=== PATIENT | female | born 2000 | race Caucasian/White ===

== ENCOUNTER 2021-01-26 21:41 | Emergency (ER) | payer MEDICAID, OTHER ==
[2021-01-26] MEDS ORDERED: Ketorolac 15 MG/ML SDV IM ONE (22:08)
--- NOTE | 2021-01-26 23:32 | CR ---
Indication: Pain after fall Technique: Three views Comparison: None Findings: Bones: Alignment is normal. No fractures or bone lesions. Joint spaces: Unremarkable. Soft tissues: Unremarkable. Dictated by Carlo Frey MD @ Jan 26 2021 11:29PM Signed by Dr. Carlo Frey @ Jan 26 2021 11:31PM
--- NOTE | 2021-01-26 23:42 | EDM.PDOC ---
ED HPI GENERAL MEDICAL PROBLEM - General Chief Complaint: Lower Extremity Injury/Pain Stated Complaint: INJURED TAILBONE Time Seen by Provider: 01/26/21 22:05 - History of Present Illness INITIAL COMMENTS - FREE TEXT/NARRATIVE: CHIEF COMPLAINT(S): Tailbone pain HISTORY OF PRESENT ILLNESS: This is a 20-year-old woman without any significant past medical history who comes to the emergency department with a chief complaint of tailbone pain. The patient states that she works for [employer] she was trying to [place]. She states that she slipped down to to force steps onto her bottom. She states that this happened approximately 2 hours ago. She states that since that time she has been experiencing pain rated 8-9 out of 10 which she describes as sharp and constant. She states that it is hard to sit down on it because it hurts. She denies any bowel incontinence or urinary incontinence. She denies any numbness or tingling of her lower extremities. She states that she is able to ambulate. She denies any abdominal pain, nausea or vomiting. She denies any head injury or loss of consciousness. She denies any chest pain or shortness of breath. She states that she has not yet taken any pain medication. REVIEW OF SYSTEMS: Constitutional: Denies fever, chills. Eyes: Denies eye pain Ears, Nose, Mouth, & Throat: Denies earache Cardiovascular: Denies chest pain Respiratory: Denies shortness of breath Gastrointestinal: Denies abdominal pain, nausea, vomiting, diarrhea, hematochezia, bowel incontinence Genitourinary: Denies hematuria urinary incontinence Skin:Denies a rash MSK: Positive for buttock pain Neurological: Denies blurred vision, numbness, tingling, weakness Psychiatric: Denies depression PAST MEDICAL HISTORY: As per history of present illness and as reviewed below otherwise noncontributory. SURGICAL HISTORY: As per history of present illness and as reviewed below otherwise noncontributory. LMP: December 19, 2020, her periods are not regular SOCIAL HISTORY: As per history of present illness and as reviewed below otherwise noncontributory. FAMILY HISTORY: As per history of present illness and as reviewed below otherwise noncontributory. EXAMINATION OF ORGAN SYSTEMS/BODY AREAS: Constitutional: Blood pressure is 123/64, heart rate 79, respiratory rate 16 with an oxygen saturation of 98% on room air. Temperature 36.6 General: Young woman who does not appear to be in acute distress. Psychiatric: Appropriate mood and affect. Eyes: No scleral icterus or conjunctival erythema ENMT: Moist mucous membranes. No pharyngeal erythema Cardiovascular: Regular, rate, and rhythm. No gallops, murmurs, or rubs. Bilateral upper extremity pulses symmetric and intact. No peripheral edema. No JVD. Respiratory: Lungs clear to auscultation bilaterally. No wheezes, rales, or rhonchi. Gastrointestinal: Soft, non-tender, non-distended. Normoactive bowel sounds Genitourinary: No suprapubic tenderness Musculoskeletal: Normal range of motion. Patient is ambulating around the room. With RN eligibility services representative in presence there is tenderness to palpation along the sacral/coccyx area. There is no deformity or bruising. No midline cervical, thoracic, or lumbar tenderness. No paraspinal muscle tenderness. Skin: No lesions or abrasions. Neurological: Alert, GCS 15 strength and sensation grossly intact in upper and lower extremities bilaterally. MEDICAL DECISION MAKING AND COURSE IN THE ED WITH INTERPRETATION/REVIEW OF DIAGNOSTIC STUDIES: This is a 20-year-old 9 without any significant past medical history who comes to the emergency department with acute buttock pain after a fall which is located around the coccyx. At this time will obtain a hCG qualitative urine and a sacrum/coccyx x-ray to evaluate for any fracture. We will provide the patient with Toradol for pain relief. There are no red flag symptoms therefore I do not believe any other labs or imaging are indicated. Laboratory: hCG is negative The radiological images were viewed by myself along with reading the report from the radiologist. Sacrum coccyx x-ray does not reveal any fracture or abnormality. After imaging I did discuss with patient that she would be stable for discharge. I did discuss the results with the patient. I discussed that she should continue to use Tylenol and Motrin and use ice to the affected area 20 minutes 4 times a day. She is to return to the emergency department for any new or worsening symptoms such as bowel incontinence, urinary incontinence, weakness or numbness of her lower extremities. She was amenable discharge at this time and had no further questions. DISPOSITION: The patient was discharged home in stable condition. The patient will follow up with primary care physician within 1 week CONDITION: Fair PROCEDURES: None FINAL IMPRESSION(S)/DIAGNOSES: 1. Acute mechanical fall 2. Acute sacral/coccyx pain Star Francis M.D. tailbone Pain Score (Numeric/FACES): 8 - Related Data Allergies Allergy/AdvReac Type Severity Reaction Status Date / Time No Known Allergies Allergy Verified 01/26/21 22:10 Home Meds: Home Meds Acetaminophen [Tylenol Extra Strength] 1,000 mg PO Q6HR #56 tablet 01/26/21 [Rx] Amphetamine/Dextroamphetamine [Adderall] 01/26/21 [History] Ibuprofen 600 mg PO Q6HR #28 tablet 01/26/21 [Rx] lamoTRIgine [Lamictal] 01/26/21 [History] Past Medical History - Past Health History Medical/Surgical History: Denies Medical/Surgical History Social & Family History - Tobacco Use Tobacco Use Status *Q: Never Tobacco User - Recreational Drug Use Recreational Drug Use: No Review of Systems - Review of Systems Review Of Systems: See Below ED EXAM, GENERAL - Physical Exam Exam: See Below Course - Vital Signs Last Recorded V/S: Last Vital Signs Temp 37.0 C 01/27/21 00:05 Pulse 85 01/27/21 00:05 Resp 16 01/27/21 00:05 BP 104/70 01/27/21 00:05 Pulse Ox 97 01/27/21 00:05 - Orders/Labs/Meds Labs: Laboratory Tests 01/26/21 Range/Units 22:18 Urine HCG, Qual NEGATIVE (NEGATIVE) Meds: Medications Discontinued Medications Generic Name Dose Route Start Last Admin Trade Name Freq PRN Reason Stop Dose Admin Ketorolac Tromethamine 15 mg 01/26/21 22:08 01/26/21 22:36 Ketorolac 15 Mg/Ml Sdv IM 01/26/21 22:09 15 mg ONETIME ONE Administration Departure - Departure Time of Disposition: 23:41 Disposition: Home, Self-Care 01 Condition: Fair Clinical Impression: Sacral pain - Discharge Information *PRESCRIPTION DRUG MONITORING PROGRAM REVIEWED*: No *COPY OF PRESCRIPTION DRUG MONITORING REPORT IN PATIENT LESVIA: No Prescriptions: Ibuprofen 600 mg PO Q6HR #28 tablet Acetaminophen [Tylenol Extra Strength] 1,000 mg PO Q6HR #56 tablet Instructions: Tailbone Injury Referrals: PCP,Not In Area [Primary Care Provider] - Forms: ED Department Discharge Additional Instructions: You evaluate today on an emergent basis. At this time the imaging did not reveal any fracture. At this time you could have a bone bruise or soft tissue injury from the fall. I do recommend the use of Tylenol and Motrin scheduled over the next 48 hours and then use as needed after that. Please use ice to the affected area 20 minutes 4 times a day. If you have any weakness of your lower extremity, urinate on yourself, or poop on yourself please return to the emergency department. Please follow-up with your primary care physician for further evaluation and monitoring within 3 to 5 days. Please use: Tylenol 500-1000mg every 6 hours (DO NOT TAKE MORE THAN 4000mg in 1 day) Ibuprofen 400mg every 6 hours (Take with food as it can cause ulcers, GI upset) Example schedule: 8:00 AM (Tylenol 500-1000mg) 11:00 AM (Ibuprofen 400mg) 2:00 PM (Tylenol 500-1000mg) 5:00 PM (Ibuprofen 400mg) In addition to Tylenol and Motrin you may use over the counter creams such as Voltaren Cream or Lidocaine Cream (Lidoderm) as needed 4 times a day for symptomatic relief. Ice the area 20 minutes 4 times per day [facility] [address] [place] [address] [place] [address] The patient is informed of any results of their evaluation and diagnostic workup and all questions are answered. They are given discharge instructions and return precautions. The patient is stable for discharge. The patient states they understand and agree with the plan and that they will return if their symptoms get worse or if they have any new concerns. The following information is given to patients seen in the emergency department who are being discharged to home. This information is to outline your options for follow-up care. We provide all patients seen in our emergency department with a follow-up referral. The need for follow-up, as well as the timing and circumstances, are variable de pending upon the specifics of your emergency department visit. If you don't have a primary care physician on staff, we will provide you with a referral. We always advise you to contact your personal physician following an emergency department visit to inform them of the circumstance of the visit and for follow-up with them and/or the need for any referrals to a consulting specialist. The emergency department will also refer you to a specialist when appropriate. This referral assures that you have the opportunity for follow-up care with a specialist. All of these measure are taken in an effort to provide you with optimal care, which includes your follow-up. Under all circumstances we always encourage you to contact your private physician who remains a resource for coordinating your care. When calling for follow-up care, please make the office aware that this follow-up is from your recent emergency room visit. If for any reason you are refused follow-up, please contact the [facility] Emergency Department at and asked to speak to the emergency department charge nurse. Sepsis Event Note (ED) - Evaluation Sepsis Screening Result: No Definite Risk - Focused Exam Vital Signs: Vital Signs Temp Pulse Resp BP Pulse Ox 01/27/21 00:05 37.0 C 85 16 104/70 97 01/26/21 22:08 36.6 C 79 16 123/64 98
== END 2021-01-27 00:08 | disposition home or self-care (01) ==
LOC: MW.ED 21:41
DX: S39.92XA Unspecified injury of lower back, initial encounter (principal); Z79.899 Other long term (current) drug therapy; W10.9XXA Fall (on) (from) unspecified stairs and steps, initial encounter
CPT/HCPCS: 72220; 81025; 96372; 99283; J1885

== ENCOUNTER 2021-04-20 23:40 | Emergency (ER) | payer MEDICAID ==
--- NOTE | 2021-04-21 01:08 | EDM.PDOC ---
ED HPI GENERAL MEDICAL PROBLEM - General Chief Complaint: Skin Complaint Stated Complaint: RASH UNDER EYES Time Seen by Provider: 04/21/21 00:45 - History of Present Illness INITIAL COMMENTS - FREE TEXT/NARRATIVE: History of present illness: [] Patient has erythematous patches under the eyes for 2 weeks. It is pruritic. She has new make-up. She has new hair dye in hair materials. She moved here from [place]. She doesn't have any local pharmacy but she will be living here. She has no trouble breathing. She sure she is not . Review of systems: As per history of present illness and below otherwise all systems reviewed and negative. Past medical history: As per history of present illness and as reviewed below otherwise noncontributory. Surgical history: As per history of present illness and as reviewed below otherwise noncontributory. Social history: No reported history of drug or alcohol abuse. Family history: As per history of present illness and as reviewed below otherwise noncontributory. Physical exam: Constitutional - well developed, well-nourished and in no acute distress HEENT - normocephalic, no evidence of trauma - external nose and mouth normal - no mass in neck and no JVD - mucosae moist EYES -blanching erythema of the lower lids in the face just below the lids. Full EOM, PERRL, no icterus - no evidence of inflammation, injection, or drainage Respiratory - no respiratory distress, equal bilateral expansion, lungs clear to auscultation and no abnormal lung sounds Cardiovascular - Regular Rhythm with S1 and S2 appreciated and no murmur, gallop or rub. GI - abdomen soft without distension or organomegaly -not tender- no guard or rebound Musculoskeletal no gross deformity of long bones or joints - no tenderness, swelling or edema Neurologic - Alert and oriented times four - CN II-XII grossly intact - motor sensory and coordination symmetrically normal Psychiatric - appropriate mood and affect with normal thought content Hematologic - No petechiae or purpura - mucosa appropriate color and sclera not pale Integument - no rash or evidence of trauma - normal turgor Diagnostics: [] Therapeutics: [] Impression: [] Plan: [] Definitive disposition and diagnosis as appropriate pending reevaluation and review of above. - Related Data Allergies Allergy/AdvReac Type Severity Reaction Status Date / Time No Known Allergies Allergy Verified 04/21/21 00:36 Home Meds: Home Meds Acetaminophen [Tylenol Extra Strength] 1,000 mg PO Q6HR #56 tablet 01/26/21 [Rx] Ibuprofen 600 mg PO Q6HR #28 tablet 01/26/21 [Rx] lamoTRIgine [Lamictal] 25 mg PO DAILY 01/26/21 [History] methylPREDNISolone [Medrol Dose Pack] 4 mg PO DAILY #21 tab 04/21/21 [Rx] Past Medical History - Past Health History Medical/Surgical History: Denies Medical/Surgical History Social & Family History - Tobacco Use Tobacco Use Status *Q: Never Tobacco User Second Hand Smoke Exposure: No - Recreational Drug Use Recreational Drug Use: No ED ROS GENERAL - Review of Systems Review Of Systems: Comprehensive ROS is negative, except as noted in HPI. ED EXAM, SKIN/RASH Exam: See Below Text/Narrative:: My physical exam is in the HPI Course - Vital Signs Last Recorded V/S: Last Vital Signs Temp 36.2 C 04/21/21 00:34 Pulse 77 04/21/21 00:34 Resp 14 04/21/21 00:34 BP 113/68 04/21/21 00:34 Pulse Ox 98 04/21/21 00:34 Departure - Departure Time of Disposition: 01:08 Disposition: Home, Self-Care 01 Condition: Good Clinical Impression: Atopic dermatitis - Discharge Information Prescriptions: methylPREDNISolone [Medrol Dose Pack] 4 mg PO DAILY #21 tab Instructions: Atopic Dermatitis Referrals: PCP,None [Primary Care Provider] - Additional Instructions: Take Benadryl 25 mg three times a day for 6 days and start the Dosepak which was sent to in the pharmacy at [facility]. Stop any make-ups or hair dyes that might be Be the cause of the allergen. If you get better on the Dosepak and it returns after you stop the Dosepak then something that you're exposing yourself to his definitely the cause and it is in your environment. [facility] [address] [place] [id number] [facility] [address] [place] [id number] The following information is given to patients seen in the emergency department who are being discharged to home. This information is to outline your options for follow-up care. We provide all patients seen in our emergency department with a follow-up referral. The need for follow-up, as well as the timing and circumstances, are variable depending upon the specifics of your emergency department visit. If you don't have a primary care physician on staff, we will provide you with a referral. We always advise you to contact your personal physician following an emergency department visit to inform them of the circumstance of the visit and for follow-up with them and/or the need for any referrals to a consulting s pecialist. The emergency department will also refer you to a specialist when appropriate. This referral assures that you have the opportunity for follow-up care with a specialist. All of these measure are taken in an effort to provide you with optimal care, which includes your follow-up. Under all circumstances we always encourage you to contact your private physician who remains a resource for coordinating your care. When calling for follow-up care, please make the office aware that this follow-up is from your recent emergency room visit. If for any reason you are refused follow-up, please contact the [facility] Emergency Department at and asked to speak to the emergency department charge nurse. Sepsis Event Note (ED) - Evaluation Sepsis Screening Result: No Definite Risk - Focused Exam Vital Signs: Vital Signs Temp Pulse Resp BP Pulse Ox 04/21/21 00:34 36.2 C 77 14 113/68 98
== END 2021-04-21 01:15 | disposition home or self-care (01) ==
LOC: MW.ED 23:40
DX: L20.9 Atopic dermatitis, unspecified (principal)
CPT/HCPCS: 99282; 99283

== ENCOUNTER 2022-06-08 14:53 | Emergency (ER) | payer BC, MEDICAID ==
[2022-06-08] MEDS ORDERED: Sodium Chloride 0.9% 1,000 ML IV ONE (16:57)
[2022-06-08] MEDS ORDERED: Sodium Chloride 0.9% 10 ML Syringe FLUSH PRN (16:57)
[2022-06-08] MEDS ORDERED: Sodium Chloride 0.9% 2.5 ML Syringe FLUSH PRN (16:57)
[2022-06-08 19:55] LABS: CARBON DIOXIDE,CO2 24.4 mmol/L (21.0-32.0); POTASSIUM,K 4.3 mmol/L (3.5-5.1)
== END 2022-06-08 20:28 ==
LOC: MW.ED 14:53
DX: R05.9 Cough, unspecified (principal); R42 Dizziness and giddiness; E11.9 Type 2 diabetes mellitus without complications; R10.9 Unspecified abdominal pain
CPT/HCPCS: 36415; 80053; 80305; 81025; 82803; 82947; 83690; 85025; 93005; 96360; 99283; J3490; J7030; 93010; 99284